=== PATIENT | male | born 1975 | race Caucasian/White ===

== ENCOUNTER 2023-01-20 23:02 | Emergency (ER) | payer MEDICAID ==
[~2023-01-20] VITALS: Ht 172.7 cm; Wt 104.3 kg
[2023-01-20] MEDS ORDERED: IBUPROFEN 400 MG TABLET PO ONE (23:30)
[2023-01-20] MEDS ORDERED: ONDANSETRON 4 MG TAB.RAPDIS PO ONE (23:30)
[2023-01-21] MEDS ORDERED: ONDANSETRON 4 MG TAB.RAPDIS ONE (00:16)
[2023-01-21] MEDS ORDERED: IBUPROFEN 400 MG TABLET ONE (00:16)
[2023-01-21 01:11] VITALS: BP 146/98; TEMP 98.4; O2SAT 100
== END 2023-01-21 01:11 | disposition home or self-care (01) ==
LOC: ER 23:27
DX: S09.90XA Unspecified injury of head, initial encounter (principal); R11.0 Nausea; V89.2XXA Person injured in unspecified motor-vehicle accident, traffic, initial encounter; Y93.89 Activity, other specified; Y92.89 Other specified places as the place of occurrence of the external cause; Y99.8 Other external cause status
CPT/HCPCS: 99284; 70450; Q0162